=== PATIENT | male | born 1960 | race Hispanic/Latino ===

== ENCOUNTER 2023-01-26 20:18 | Inpatient (IN) | payer BC, MEDICARE ==
[2023-01-26 20:46] VITALS: BMI 52.6
[2023-01-26] MEDS ORDERED: Acetaminophen 650 MG Suppository PR PRN (21:05)
[2023-01-26] MEDS ORDERED: Acetaminophen 325 MG TAB PO PRN (21:05)
[2023-01-26] MEDS ORDERED: Ondansetron PF 4 MG/2 ML Vial IVP PRN (21:05)
[2023-01-26] MEDS ORDERED: Ondansetron ODT 4 MG TAB PO PRN (21:05)
[2023-01-26] MEDS ORDERED: Ipratropium/Albuterol 3 ML NEB NEB PRN (21:08)
[2023-01-26] MEDS: Ipratropium/Albuterol 3 ML NEB NEB SCH (22:42)
[2023-01-27] MEDS: Ipratropium/Albuterol 3 ML NEB NEB SCH ×6 (01:59→23:15)
[2023-01-27 03:54] LABS: Hematocrit 35.3 % (42.0-52.0); Hemoglobin 11.6 g/dL (14.0-18.0); Mean Corpuscular HGB CONC 32.9 g/dL (32.0-36.0); Mean Corpuscular Hemoglobin 29.9 pg (27.0-31.0); Mean Platelet Volume 10.2 fL (7.4-10.4); Platelet Count 178 10x3/uL (130-400); RBC Distribution Width 14.5 % (11.5-14.5); Red Blood Cell (RBC) Count 3.88 mill/uL (4.70-6.10); White Blood Cell (WBC) Count 30.9 10x3/uL (4.8-10.8)
[2023-01-27 03:59] LABS: Delete Auto Diff?? YES; Manual Diff?? YES
[2023-01-27 04:15] LABS: Lactic Acid 1.9 mmol/L (0.5-2.2)
[2023-01-27 04:21] LABS: Anion Gap 14 mmol/L (10-20); Anisocytosis MODERATE=16-30 cells HPF (0-5); BUN (Urea Nitrogen) 36 mg/dL (8.4-25.7); Band 43 % (5-11); Calc. Creatinine Clearance 97 mL/min (70-130); Calcium 8.3 mg/dL (7.8-10.44); Carbon Dioxide 22 mmol/L (23-31); CellaVision Operator ID LAB.CLH1; Chloride 100 mmol/L (98-107); Estimated GFR 44; Glucose 214 mg/dL (80-115); Lymphocytes 1 % (21-51); Macrocytosis SLIGHT = 6-15 cells HPF (0-5); Metamyelocyte 8 % (0-0); Monocytes 1 % (0-10); Neutrophil 47 % (42-75); Platelet Adequacy Comment Platelets Normal; Polychromasia SLIGHT = 2-3 cells HPF (0-2); Potassium 3.8 mmol/L (3.5-5.1); Sodium 132 mmol/L (136-145); Total Cell Count 104
[2023-01-27 04:22] LABS: Troponin I Less than 0.010 ng/mL (< 0.028)
[2023-01-27 05:36] LABS: Bacteria/HPF None Seen HPF (None Seen); Bilirubin Negative (Negative); Blood, Urine Negative (Negative); Clarity Clear (Clear); Glucose, Urine (Dipstick) Normal (Negative); Ketone, Urine Trace mg/dL (Negative); Leukocyte Negative Leu/uL (Negative); Nitrite Negative (Negative); Protein, Urine (Dipstick) 20 mg/dL (Neg-Trace); RBC/HPF 0-3 HPF (0-3); Specific Gravity, Urine 1.026 (1.002-1.036); Squamous Epithelial None Seen HPF (0-3); Urobilinogen Normal mg/dL (Less than 2); WBC/HPF 0-3 HPF (0-3); pH, Urine 5.5 (5.0-9.0)
[2023-01-27] MEDS: methylPREDNISolone Sod Succ 40 MG VIAL IVP SCH (08:40)
[2023-01-27] MEDS: cefTRIAXone\\ROCEPHIN 2 GM in Sodium Chloride 0.9% 100 ML IVPB SCH (14:02)
[2023-01-27] MEDS: Azithromycin 500 MG in Sodium Chloride 0.9% 250 ML 250 ML IVPB SCH (15:10)
[2023-01-27] MEDS: Mometasone 200 MCG/Formoterol 5 MCG 120 PUFF INHALER INH SCH (19:40)
[2023-01-27] MEDS: Carvedilol 6.25 MG TAB PO SCH (20:05)
[2023-01-27] MEDS ORDERED: Non-Formulary Item 1 EACH (Tiotropium Bromide 4 GM Inhaler) INH SCH (21:00)
[2023-01-28] MEDS: Ipratropium/Albuterol 3 ML NEB NEB SCH ×6 (01:53→23:16)
[2023-01-28] MEDS ORDERED: Ipratropium/Albuterol 3 ML NEB ONE (02:09)
[2023-01-28 05:48] LABS: #Monocytes 1.1 thou/uL (0.11-0.59); #Neutrophils 19.6 thou/uL (1.40-6.50); %Basophils 0.1 % (0.0-1.0); %Lymphocytes 3.6 % (21.0-51.0); %Neutrophils 88.3 % (42.0-75.0); Hemoglobin 10.9 g/dL (14.0-18.0); Mean Corpuscular HGB CONC 32.1 g/dL (32.0-36.0); Mean Corpuscular Hemoglobin 29.5 pg (27.0-31.0); Mean Corpuscular Volume 92.1 fl (78.0-98.0); Mean Platelet Volume 10.5 fL (7.4-10.4); Platelet Count 184 10x3/uL (130-400); RBC Distribution Width 14.2 % (11.5-14.5); Red Blood Cell (RBC) Count 3.69 mill/uL (4.70-6.10); White Blood Cell (WBC) Count 22.2 10x3/uL (4.8-10.8)
[2023-01-28 06:10] LABS: Anion Gap 11 mmol/L (10-20); BUN (Urea Nitrogen) 31 mg/dL (8.4-25.7); Calc. Creatinine Clearance 153 mL/min (70-130); Calcium 8.6 mg/dL (7.8-10.44); Carbon Dioxide 26 mmol/L (23-31); Chloride 102 mmol/L (98-107); Estimated GFR 77; Glucose 129 mg/dL (80-115); Potassium 4.2 mmol/L (3.5-5.1); Sodium 135 mmol/L (136-145)
[2023-01-28] MEDS: Mometasone 200 MCG/Formoterol 5 MCG 120 PUFF INHALER INH SCH ×2 (06:50→18:23)
[2023-01-28] MEDS: NIFEdipine XL 60 MG ER.TAB PO SCH (08:16)
[2023-01-28] MEDS: Rosuvastatin 20 MG TAB PO SCH (08:16)
[2023-01-28] MEDS: methylPREDNISolone Sod Succ 40 MG VIAL IVP SCH (08:17)
[2023-01-28] MEDS: Carvedilol 6.25 MG TAB PO SCH ×2 (08:17→20:32)
[2023-01-28] MEDS: Potassium Citrate 10 MEQ TAB PO SCH (09:48)
[2023-01-28] MEDS: cefTRIAXone\\ROCEPHIN 2 GM in Sodium Chloride 0.9% 100 ML IVPB SCH (13:58)
[2023-01-28] MEDS: Azithromycin 500 MG in Sodium Chloride 0.9% 250 ML 250 ML IVPB SCH (15:09)
[2023-01-29] MEDS: Ipratropium/Albuterol 3 ML NEB NEB SCH ×3 (02:59→10:01)
[2023-01-29] MEDS: Mometasone 200 MCG/Formoterol 5 MCG 120 PUFF INHALER INH SCH (06:32)
[2023-01-29] MEDS: NIFEdipine XL 60 MG ER.TAB PO SCH (08:31)
[2023-01-29] MEDS: Rosuvastatin 20 MG TAB PO SCH (08:32)
[2023-01-29] MEDS: Carvedilol 6.25 MG TAB PO SCH (08:32)
[2023-01-29] MEDS: methylPREDNISolone Sod Succ 40 MG VIAL IVP SCH (08:33)
[2023-01-29] MEDS: Potassium Citrate 10 MEQ TAB PO SCH (09:13)
[2023-01-29 12:27] VITALS: BP 142/74; TEMP 97.8
== END 2023-01-29 12:42 | disposition home or self-care (01) | DRG 871 ==
LOC: CCU 20:18 → T4-B 21:55
PROVIDERS: ADMIT Student in an Organized Health Care Education/Training Program; ATTEND Family Medicine
PROC: 3E03329 Introduction of Other Anti-infective into Peripheral Vein, Percutaneous Approach (ICD-10-PCS; principal; 2023-01-27)
PROC: 5A09457 Assistance with Respiratory Ventilation, 24-96 Consecutive Hours, Continuous Positive Airway Pressure (ICD-10-PCS; 2023-01-27)
DX: A41.89 Other specified sepsis (principal); J18.9 Pneumonia, unspecified organism; J96.21 Acute and chronic respiratory failure with hypoxia; N17.9 Acute kidney failure, unspecified; I13.0 Hypertensive heart and chronic kidney disease with heart failure and stage 1 through stage 4 chronic kidney disease, or unspecified chronic kidney disease; Z68.43 Body mass index [BMI] 50.0-59.9, adult; E87.20 Acidosis, unspecified; J44.9 Chronic obstructive pulmonary disease, unspecified; G47.30 Sleep apnea, unspecified; I50.9 Heart failure, unspecified; N18.9 Chronic kidney disease, unspecified; E66.01 Morbid (severe) obesity due to excess calories; Z79.899 Other long term (current) drug therapy; Z99.81 Dependence on supplemental oxygen; Z91.041 Radiographic dye allergy status
CPT/HCPCS: 36415; 71045; 76770; 80048; 80053; 81001; 83605; 83880; 84484; 85025; 85379; 87040; 93005; 94640; J0456; J0696; J1650; J2920; J2930; J3490; J7050; J7620